=== PATIENT | female | born 1975 | race African-American/Black ===

== ENCOUNTER 2022-02-09 07:03 | Emergency (ER) | payer MEDICAID, OTHER ==
[~2022-02-09] VITALS: Ht 149.9 cm; Wt 68.0 kg
[2022-02-09] MEDS ORDERED: ACETAMINOPHEN 500 MG TAB PO ONE (08:00)
[2022-02-09 08:33] VITALS: BP 161/94
[2022-02-09] MEDS ORDERED: IBUP800T27 PO (08:59)
== END 2022-02-09 09:17 | disposition home or self-care (01) ==
LOC: ER 07:03 → EDBD 07:03 → ER 09:16
DX: S22.32XA Fracture of one rib, left side, initial encounter for closed fracture (principal); S29.011A Strain of muscle and tendon of front wall of thorax, initial encounter; M62.830 Muscle spasm of back; Z90.49 Acquired absence of other specified parts of digestive tract; V43.52XA Car driver injured in collision with other type car in traffic accident, initial encounter; Y93.89 Activity, other specified; Y92.89 Other specified places as the place of occurrence of the external cause; Y99.8 Other external cause status
CPT/HCPCS: 71101